=== PATIENT | female | born 1990 | race Hispanic/Latino ===

== ENCOUNTER 2021-11-10 17:22 | Emergency (ER) | payer MEDICAID, OTHER ==
[~2021-11-10] VITALS: Ht 162.6 cm; Wt 74.4 kg
[2021-11-10] MEDS ORDERED: 0.9%NACL 1000ML 1,000 ML IV ONE (17:30)
[2021-11-10 17:45] LABS: BASOPHILS % (AUTO) 0.1 % (0.0-5.0); LYMPHOCYTES % (AUTO) 11.6 % (21.0-51.0); MEAN CORPUSCULAR HEMOGLOBIN 22.5 pg (27.0-33.0); MEAN CORPUSCULAR HGB CONC 30.3 g/dL (32.0-36.0); MEAN CORPUSCULAR VOLUME 74.3 fL (79-99); MONOCYTES % (AUTO) 4.5 % (3.0-13.0); NEUTROPHILS % (AUTO) 82.5 % (40.0-77.0); PLATELET COUNT (AUTO) 318 K/uL (130-400); RED BLOOD CELL COUNT(AUTO) 4.17 MIL/uL (4.00-5.50); RED CELL DISTRIBUTION WIDTH 16.7 % (11.0-15.5); WHITE BLOOD COUNT (AUTO) 7.9 K/uL (4.8-10.8)
[2021-11-10 17:47] LABS: APPEARANCE,URINE Clear (CLEAR); BILIRUBIN,URINE Negative (NEGATIVE); COLOR,URINE Yellow (YELLOW); GLUCOSE, URINE (UA) Negative (NEGATIVE); KETONES,URINE Negative (NEGATIVE); LEUKOCYTE ESTERASE ,URINE Trace (NEGATIVE); NITRATE,URINE Negative (NEGATIVE); OCCULT BLOOD,URINE Negative (NEGATIVE); PH,URINE 7.5 (5.0-8.0); PROTEIN,URINE Negative (NEGATIVE)
[2021-11-10 17:55] LABS: CREATININE 0.5 mg/dL (0.5-1.5); POTASSIUM 3.2 mmol/L (3.5-5.1)
[2021-11-10 18:00] LABS: BILIRUBIN,TOTAL 0.2 mg/dL (0.2-1.0); TOTAL PROTEIN, SERUM 7.3 g/dL (6.0-8.3)
[2021-11-10] MEDS ORDERED: POTASSIUM BICARB/CIT AC 25 MEQ TABLET.EFF PO ONE (18:00)
[2021-11-10 18:18] LABS: BACTERIA,URINE Few /HPF (None Seen); RBC,URINE 0-1 /HPF (0-1); SQUAMOUS EPITHELIAL CELL,UR Few /HPF (0-2)
[2021-11-10 18:54] VITALS: BP 103/66
[2021-11-10] MEDS ORDERED: CEFTRIAXONE 1G VIAL IVP ONE (19:00)
[2021-11-10] MEDS ORDERED: ACET-2247 PO (19:19)
[2021-11-10] MEDS ORDERED: AMOX-429 PO (19:19)
== END 2021-11-10 19:37 | disposition home or self-care (01) ==
LOC: EDH 17:22
DX: O98.511 Other viral diseases complicating pregnancy, first trimester (principal); J02.0 Streptococcal pharyngitis; Z20.822 Contact with and (suspected) exposure to COVID-19; Z3A.14 14 weeks gestation of pregnancy
CPT/HCPCS: 36415; 80053; 81001; 85025; 87635; 87804 ×2; 87880; 96361; 96374; 99283; C9803; J0696

== ENCOUNTER 2021-12-05 21:22 | Emergency (ER) | payer MEDICAID ==
[~2021-12-05] VITALS: Ht 160 cm; Wt 80.3 kg
[~2021-12-05 21:22] MED LIST: ACET-2247 PO; AMOX-429 PO
[2021-12-05 21:23] VITALS: BP 106/59
[2021-12-05] MEDS ORDERED: DIPH25 PO (22:50)
[2021-12-05] MEDS ORDERED: ACET-66 PO (22:50)
== END 2021-12-05 23:04 | disposition home or self-care (01) ==
LOC: EDH 21:22
DX: O98.512 Other viral diseases complicating pregnancy, second trimester (principal); U07.1 COVID-19; Z3A.18 18 weeks gestation of pregnancy
CPT/HCPCS: 87635; 87804 ×2; 87880; 99283; C9803

== ENCOUNTER 2022-01-28 13:05 | Observation (INO) | payer MEDICAID ==
[~2022-01-28] VITALS: Ht 162.6 cm; Wt 80.7 kg
[~2022-01-28 13:05] MED LIST changes: +ACET-66 PO; +DIPH25 PO
[2022-01-28 13:06] VITALS: BP 101/66
[2022-01-28 13:47] LABS: APPEARANCE,URINE CLOUDY (CLEAR); BILIRUBIN,URINE NEGATIVE (NEGATIVE); COLOR,URINE YELLOW (YELLOW); GLUCOSE, URINE (UA) NEGATIVE (NEGATIVE); KETONES,URINE NEGATIVE (NEGATIVE); LEUKOCYTE ESTERASE ,URINE NEGATIVE (NEGATIVE); NITRATE,URINE NEGATIVE (NEGATIVE); OCCULT BLOOD,URINE MODERATE (NEGATIVE); PROTEIN,URINE NEGATIVE (NEGATIVE); UROBILINOGEN,URINE 0.2 mg/dL (0.2-1.0)
[2022-01-28 13:57] LABS: BACTERIA,URINE Moderate /HPF (None Seen)
[2022-01-28 13:58] LABS: AMORPHOUS SEDIMENT,UR Moderate /LPF (None Seen); RBC,URINE 0-1 /HPF (0-1)
== END 2022-01-28 16:15 | disposition home or self-care (01) ==
LOC: EDH 13:05 → LDH 13:06
PROVIDERS: ADMIT Obstetrics & Gynecology; ATTEND Obstetrics & Gynecology
DX: O46.92 Antepartum hemorrhage, unspecified, second trimester (principal); Z3A.26 26 weeks gestation of pregnancy
CPT/HCPCS: 76805; 81001; 87088; G0378 ×2

== ENCOUNTER 2022-11-02 13:17 | Emergency (ER) | payer MEDICAID ==
[~2022-11-02] VITALS: Ht 165.1 cm; Wt 68.0 kg
[2022-11-02 13:20] VITALS: BP 105/60
== END 2022-11-02 15:08 | disposition home or self-care (01) ==
LOC: EDH 13:17
DX: B34.9 Viral infection, unspecified (principal); Z20.822 Contact with and (suspected) exposure to COVID-19
CPT/HCPCS: 99283; 87635; 87804 ×2; C9803